=== PATIENT | male | born 1945 | race Caucasian/White ===

== ENCOUNTER → 2018-01-09 12:31 | Outpatient (CLI) | payer MEDICARE, SELFPAY ==
[2018-01-09 13:23] LABS: Alanine Aminotransferase 78 IU/L (21-72); Albumin 4.7 g/dL (3.5-5.0); Albumin Globulin Ratio 1.7 (1.0-2.8); Alkaline Phosphatase 74 U/L (38-126); Aspartate Aminotransferase 55 IU/L (17-59); BUN Creatinine Ratio 17.3 (6-22); Bilirubin Total 1.6 mg/dL (0.2-1.3); Blood Urea Nitrogen 19 mg/dL (9-20); Calcium 9.4 mg/dL (8.4-10.2); Carbon Dioxide 25 mmol/L (22-32); Chloride 106 mmol/L (98-107); Cholesterol 198 mg/dL (140-199); Estimated Glomerular Filt Rate > 60.0 mL/min (>60); Globulin 2.8 g/dL (1.7-4.1); Glucose 93 mg/dL (80-110); HDL Cholesterol 46 mg/dL (40-60); HEMOLYSIS 17 (0-50); LDL Cholesterol Calculated 133 mg/dL (<100); Potassium 4.6 mmol/L (3.4-5.1); Sodium 142 mmol/L (137-145); Total Protein 7.5 g/dL (6.3-8.2); Triglycerides 96 mg/dL (35-150)
== END ==
PROVIDERS: Family Provider Family Medicine; PCP Family Medicine; Visit Provider Internal Medicine
DX: E78.00 Pure hypercholesterolemia, unspecified (principal); R03.0 Elevated blood-pressure reading, without diagnosis of hypertension
CPT/HCPCS: 36415; 80053; 80061

== ENCOUNTER → 2018-01-21 12:20 | Outpatient (CLI) | payer MEDICARE, SELFPAY ==
[2018-01-21 13:13] LABS: Iron 82 ug/dL (49-181)
[2018-01-21 13:14] LABS: Alanine Aminotransferase 65 IU/L (21-72); Aspartate Aminotransferase 40 IU/L (17-59); Bilirubin Direct 0.3 mg/dL (0.0-0.4)
[2018-01-21 13:22] LABS: Total Iron Binding Capacity 279 ug/dL (261-462)
[2018-01-22 13:42] LABS: Hepatitis B Core Antibody Nonreactive (Nonreactive)
[2018-01-24 07:20] LABS: Hepatitis B Surf Ab Qualitativ Nonreactive (Nonreactive)
[2018-02-04 14:11] LABS: Hepatitis BE Antigen NONREACTIVE
== END ==
PROVIDERS: Visit Provider Internal Medicine
DX: R17 Unspecified jaundice (principal); R74.0 Nonspecific elevation of levels of transaminase and lactic acid dehydrogenase [LDH]
CPT/HCPCS: 36415; 82247; 82248; 83540; 83550; 84450; 84460; 86704; 86706; 87350

== ENCOUNTER → 2018-01-30 10:11 | Outpatient (CLI) | payer MEDICARE, SELFPAY ==
--- NOTE | 2018-01-30 10:13 | DI.US.S_ITS ---
PROCEDURE: US ABDOMEN COMPLETE INDICATIONS: ABNORMAL LFTS TECHNIQUE: Real-time scanning was performed of the abdominal and retroperitoneal organs, with image documentation. COMPARISON: None. FINDINGS: Liver: The liver demonstrates prominent size. The liver demonstrates generalized increased echogenicity. This decreases ultrasound sensitivity for detection of hepatic masses. Gallbladder: No findings of gallstones or sludge are seen. The gallbladder wall is not thickened, measuring 3 mm or less. No specific pericholecystic fluid is seen. The sonographic Tomlinson sign is negative. Biliary ducts: Intrahepatic bile ducts are non-dilated. Extrahepatic bile duct caliber measures 6 mm. Normal is 6-7 mm or less in diameter, or 10 mm or less post-cholecystectomy. Pancreas: Visualized portions of the pancreas are sonographically normal. Spleen: Spleen is normal in size and homogeneous in echotexture. Kidneys: Kidneys are normal in size and echotexture. Right kidney measures 13.8 cm long; left kidney measures 12.2 cm long. No hydronephrosis or nephrolithiasis. At the superior pole the right kidney, there is a 16 x 11 x 20 mm rounded, non-shadowing echogenic lesion seen. The renal cortex measures within normal limits for thickness. Aorta: Visualized aorta is normal in caliber at less than 3 cm. Iliacs: Not seen, obscured by overlying bowel gas. IVC: Not seen, obscured by overlying bowel gas. Miscellaneous: No free abdominal fluid. IMPRESSION: The liver demonstrates increased echogenicity. This finding is nonspecific, yet it is most commonly attributed to fatty infiltration. The gallbladder demonstrates a normal sonographic appearance. No biliary dilatation is seen. 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 Attention should be paid to this lesion on any future followup studies. Dictated by: Valente Galloway M.D. on 01/30/2018 at 11:43 Approved by: Valente Galloway M.D. on 01/30/2018 at 11:45
== END ==
PROVIDERS: PCP Internal Medicine; Visit Provider Internal Medicine
DX: R17 Unspecified jaundice (principal); R74.0 Nonspecific elevation of levels of transaminase and lactic acid dehydrogenase [LDH]; N28.9 Disorder of kidney and ureter, unspecified
CPT/HCPCS: 76700

== ENCOUNTER → 2018-05-03 12:23 | Outpatient (CLI) | payer MEDICARE, SELFPAY | PROVIDERS: PCP Student in an Organized Health Care Education/Training Program; Visit Provider Physician Assistant | DX: R31.9 Hematuria, unspecified (principal) | CPT/HCPCS: 87086 ==

== ENCOUNTER → 2018-10-16 13:48 | Outpatient (CLI) | payer MEDICARE, SELFPAY ==
[2018-10-16 15:30] LABS: Alanine Aminotransferase 28 IU/L (21-72); Albumin 4.6 g/dL (3.5-5.0); Albumin Globulin Ratio 1.6 (1.0-2.8); Alkaline Phosphatase 82 U/L (38-126); Aspartate Aminotransferase 26 IU/L (17-59); Bilirubin Unconjugated 0.8 mg/dL (0.0-1.1); Cholesterol 168 mg/dL (140-199); Globulin 2.9 g/dL (1.7-4.1); HDL Cholesterol 49 mg/dL (40-60); HEMOLYSIS < 15 (0-50); LDL Cholesterol Calculated 88 mg/dL (<100); Total Protein 7.5 g/dL (6.3-8.2); Triglycerides 154 mg/dL (35-150)
[2018-10-16 15:47] LABS: Vitamin D 25 Hydroxy (D3) 28.6 ng/mL (30.0-100.0)
== END ==
PROVIDERS: PCP Student in an Organized Health Care Education/Training Program; Visit Provider Student in an Organized Health Care Education/Training Program
DX: E78.00 Pure hypercholesterolemia, unspecified (principal); Z79.899 Other long term (current) drug therapy; E55.9 Vitamin D deficiency, unspecified
CPT/HCPCS: 36415; 80061; 80076; 82306

== ENCOUNTER → 2019-10-14 14:50 | Outpatient (CLI) | payer MEDICARE, SELFPAY ==
[2019-10-14 14:56] LABS: Bacteria Urine None Seen
[2019-10-14 15:30] LABS: Appearance Urine UA CLEAR; Bilirubin Urine UA NEGATIVE (NEGATIVE); Color Urine UA YELLOW; Glucose Urine UA NEGATIVE (Negative); Ketones Urine UA TRACE (NEGATIVE); Leukocyte Esterase Urine UA NEGATIVE (NEGATIVE); Nitrite Urine UA NEGATIVE (Negative); Occult Blood Urine UA NEGATIVE (Negative); Protein Urine UA TRACE (Negative); Specific Gravity Urine UA >=1.030 (1.000-1.035); Urobilinogen Urine UA 0.2 E.U./dL (0.2)
[2019-10-14 15:42] LABS: Amorphous Sediment Urine 3+; Culture Indicated Urine Cult Not Indicated; Other Crystals Urine 3+; RBC Urine 0-1/HPF (0-5/HPF); Squamous Epithelial Cell Urine 0-1 /HPF (0-5/HPF); WBC Urine 0-1/HPF (0-5/HPF)
== END ==
PROVIDERS: PCP Student in an Organized Health Care Education/Training Program; Referring Provider Student in an Organized Health Care Education/Training Program; Visit Provider Student in an Organized Health Care Education/Training Program
DX: R31.0 Gross hematuria (principal)
CPT/HCPCS: 81001

== ENCOUNTER → 2020-12-26 12:57 | Outpatient (CLI) | payer MEDICARE, SELFPAY ==
[2020-12-26 15:30] LABS: COVID19 -Nasal RAPID Negative (Negative)
== END ==
PROVIDERS: PCP Student in an Organized Health Care Education/Training Program; Visit Provider Physician Assistant
DX: Z01.812 Encounter for preprocedural laboratory examination (principal); Z20.822 Contact with and (suspected) exposure to COVID-19
CPT/HCPCS: 87635; C9803

== ENCOUNTER 2020-12-28 13:03 | Day surgery (SDC) | payer MEDICARE, SELFPAY ==
--- NOTE | 2020-12-26 17:45 | PM.PREOP ---
Pre-operative Note COVID-19 COVID-19 status: Negative Interval Note History & Physical reviewed/Exam performed by Physician: Yes Changes to H&P: No
--- NOTE | 2020-12-26 17:46 | P.OP_ITS ---
Operative Date/Time/Diagnoses Date of procedure: 12/28/20 Time of procedure: 13:15 Procedure & Clinicians Procedure: Preoperative diagnoses: 1. Right complex surgery with use of capsular dye and Maluygin ring. 2. Mature or advanced nuclear sclerotic and cortical cataract with poor visibility of the anterior capsule increasing surgical risks of complications. 3. Exudative macular degeneration with ongoing intravitreal injections increasing risk of complication. 4. Amblyopia left eye 5. 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 Postoperative diagnoses: 1. Complex surgery with use of capsular dye, and Maluygin ring. 2. Anterior vitrectomy with corneal suture. 3. 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 Cathy Jacobo MD Complications: Lens nucleus fell into the posterior chamber during the surgery. An anterior vitrectomy was performed however no lens fragments except for anterior cortex were removed. The Maluygin ring was disinserted and removed any corneal suture placed. Specimen: None Implant: [id number]+24.0 Blood loss: None Anesthesia: Retrobulbar with monitored standby. Description of procedure: Dictated by: Cathy Jacobo MD Post operative diagnoses: 1. Right cataract partially removed with use of capsular dye . 2. Placement of a Maluygin ring which is then removed. 3. Anterior vitrectomy 4. Placement of a corneal suture. 5. General anesthesia requested. 6. Arrhythmia 7. Sleep apnea Procedure: Phacoemulsification with partial lensectomy. Use of Maluygin ring and capsular dye. Complication of lens nuclear material into posterior vitreous. No intra-ocular lens inserted. Anterior vitrectomy performed and corneal suture placed. Surgeon: Cathy Jacobo MD Blood loss: None Anesthesia: Laryngeal mask airway Description of procedure: Patient has presented with decreased vision due to cataract which is affecting activities of daily living distance and near. The patient wants surgery to improve vision. Due to ongoing intravitreal injections in his right eye surgeries carefully time to be at maximum safety. 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 General anesthesia is chosen for better postoperative visual recovery and patient. The patient was taken to the operating room and given IV sedation. A laryngeal mask airway was placed. The eye is manually massaged for 30 sec, prepped using Betadine solution, and draped in the usual sterile fashion. Temporal approach was made, a 1 mm side-port incision was performed 90 degrees from the planned corneal wound. Phenylephrine 1.5% mixed with 1% xylocaine 0.2 cc was placed into the anterior chamber. An air bubble was placed and Visudyne dye was placed to improve visibility of the anterior capsule. The dye was irrigated out to reduce bubbles. Endocoat followed by Healon was then placed. A 2.6 mm clear incision with a 2.6 mm blade was placed. A 7.0 malunion ring was inspected and opened into the anterior chamber due to need for better pupillary dilation. This is secondary to use of tamsulosin for or prostate disorder. A 360 degree capsulorrhexis style capsulotomy was then performed with a cystitome needle on a Healon. Zonules appeared intact. Hydrodelineation and hydrodissection were performed. The phacoemulsification unit is introduced, and sculpting used to groove the central lens. While centrally grooving I noted a sudden change in the red reflex and deepening of the chamber. The nucleus de scending rapidly out of view leaving only anterior cortex. The capsulorrhexis was intact but I then noted a rent in the posterior capsule with vitreous presentation. I consulted with Dr. Ruiz of [facility] and Dr. Aguilar of [facility] on what was the best course to proceed. Recommendation was to remove the Maluygin ring, remove anterior viscoelastic and placed a suture. While removing the anterior viscoelastic I did notice vitreous to the wound and therefore a limited anterior vitrectomy was performed including some removal of anterior cortex. An air bubble was placed and no vitreous was noted to the wound. A corneal suture of 10 0 nylon was placed through the cornea and buried. The wound was tested for leaks, there was none and the suture left in position. Vigamox 0.1 cc was placed into the anterior chamber. A drop of antibiotic and was placed and the eye was patched and shielded. The patient was stable and returned to the recovery room in excellent condition. Extensive conversation was then held by phone with the reviewing the complication and planned for further surgery. The patient will be seen at 8:00 a.m. in [place] at [facility] for 8 hours with anticipation of further surgery as soon as possible. Special instructions were given as is patient is amblyopic in his left eye which has poor visual ability. It is recommended that he sit in a recliner to sleep this evening. Dictated by: Cathy Jacobo MD Copy to: [facility] Same procedure as scheduled: No Post-operative Plan for aftercare: Patient will be patch for the evening. He will stay in a semi reclined position to sleep. [facility] will report to [facility] in [place] in the morning for further evaluation. All instructions given to his . Chart notes will be faxed.
[2020-12-28] VITALS (10 sets, daily range): BP systolic 101–128; BP diastolic 64–80; PULSE 51–74; RESP 11–18; TEMP 35.8–36.5; O2SAT 94–99; BMI 30.4
[2020-12-28] MEDS: PROPARACAINE 0.5% OPHTH SOL 2 DROPS EYE-OP (13:18)
[2020-12-28] MEDS: CATARACT EYE COMPOUND (10 DROPS/SYRINGE) 3 DROPS EYE-OP (13:30)
[2020-12-28] MEDS: LACTATED RINGERS 1,000 ML 42 ML IV (13:34)
--- NOTE | 2020-12-28 13:59 | SUR.OPER ---
Supine on eye stretcher, head on extension cradle secured with tape. Arms tucked at sides with blanket. Pillow under knees.
[2020-12-28] MEDS: HYALURONATE SODIUM 30 MG-10 MG/ML SYRINGES 1 BOX INTRAOCULA (15:10)
[2020-12-28] MEDS: ERYTHROMYCIN OPHTH 1 GM OINT 1 APPLIC EYE-RIGHT (15:10)
[2020-12-28] MEDS: TRYPAN BLUE 0.5 ML SYRINGE INJ (15:10)
[2020-12-28] MEDS: BALANCED SALT IRRIG SOLN NO.2 500 ML, EPINEPHrine 1 MG IRR (15:10)
[2020-12-28] MEDS: PHENYLEPHRINE/LIDOCAINE VIAL (OR) 0.2 ML EYE-OP (15:56)
--- NOTE | 2020-12-28 17:29 | SUR.PHASEI ---
Sleeping in position of comfort on left side. Dr. Jacobo attempted to talk to the patient but he was too sleepy. Was able to open his left eye once in response to command and then returned to sleep.
--- NOTE | 2020-12-28 17:42 | SUR.PHASEI ---
Dr Jacobo talking to the patient. He's very sleep, answers questions.
== END 2020-12-28 18:15 | disposition home or self-care (01) ==
LOC: OR 13:06
PROVIDERS: PCP Student in an Organized Health Care Education/Training Program; Referring Provider Ophthalmology; Visit Provider Ophthalmology
PROC: (CPT 66982; principal; 2020-12-28 14:15)
DX: H25.811 Combined forms of age-related cataract, right eye (principal); H35.3210 Exudative age-related macular degeneration, right eye, stage unspecified; H53.002 Unspecified amblyopia, left eye
CPT/HCPCS: 66982; J0171; J1100; J2250; J2405; J2704; J3010

== ENCOUNTER → 2021-05-04 12:39 | Outpatient (CLI) | payer MEDICARE, SELFPAY ==
[2021-05-04 13:42] LABS: COVID19 -Nasal RAPID POSITIVE (Negative)
== END ==
PROVIDERS: PCP Student in an Organized Health Care Education/Training Program; Visit Provider Physician Assistant
DX: Z20.822 Contact with and (suspected) exposure to COVID-19 (principal)
CPT/HCPCS: 87635

== ENCOUNTER → 2021-06-28 15:04 | Outpatient (CLI) | payer MEDICARE, SELFPAY ==
--- NOTE | 2021-06-28 15:05 | DI.MRI.S_ITS ---
PROCEDURE: MR LUMBAR SPINE WO CON INDICATIONS: Worsening lower extremity weakness and lack of stamina TECHNIQUE: Noncontrast sagittal T1 spin echo and T2 fast echo, sagittal STIR, axial T1 and T2 fast spin echo through the lumbar spine. In cases with scoliosis, additional coronal T2 fast spin echo may be performed. COMPARISON: None. FINDINGS: Image quality: Excellent. Alignment and Curvature: Normal lumbar vertebral body height and alignment. Bone Marrow: [id number] discogenic marrow edema (Modic type 1 degenerative endplate change) at the opposing L5-S1 and L1-L2 endplates with associated Schmorl nodes. No suspicious focal marrow signal abnormality. Spinal Cord: Normal position and appearance of the conus. Regional Soft Tissues: Prevertebral and paraspinous soft tissues are within normal limits. T12-L1: No spinal canal stenosis. Diffuse disc bulge flattens the ventral thecal sac without mass effect upon the traversing L1 nerve roots. Foraminal components of the disc bulge and facet hypertrophy combine to produce mild bilateral neural foraminal narrowing. L1-L2: Diffuse disc bulge flattens and indents the ventral thecal sac. There is displacement of the descending L2 nerve roots and crowding overall of the traversing nerve roots. Buckling of the ligamentum flavum and facet hypertrophy further contribute to overall mild-moderate spinal canal stenosis. Foraminal components of the disc bulge and facet hypertrophy combine to produce mild bilateral neural foraminal stenosis. L2-L3: Diffuse disc bulge and a superimposed broad-based posterior disc protrusion flatten the ventral thecal sac. Mild displacement of the descending L3 nerve roots within both subarticular zones. Foraminal components of the disc bulge and facet hypertrophy combine to produce mild bilateral neural foraminal stenosis. L3-L4: Moderate spinal canal stenosis and is through a combination of diffuse disc bulge, superimposed broad-based posterior disc protrusion, buckling of the ligamentum flavum, and facet hypertrophy. Foraminal components of the disc bulge and facet hypertrophy combine to produce mild bilateral foraminal stenosis. L4-L5: Moderate spinal canal stenosis and moderate-severe subarticular zone stenosis due to a combination of diffuse disc bulge, superimposed broad-based posterior disc protrusion, buckling of the ligamentum flavum, and facet hypertrophy. Foraminal components of the disc bulge and facet hypertrophy combine to produce mild bilateral neural foraminal stenosis. L5-S1: Diffuse disc bulge with a superimposed broad-based posterior disc protrusion. Mild displacement of the descending S1 nerve roots in both subarticular zones. Foraminal components of the disc bulge and facet hypertrophy combine to produce moderate left and mild right neural foraminal stenosis. IMPRESSION: Multilevel multifactorial degenerative changes. Moderate spinal canal stenosis at L3-L4 and L4-L5 with moderate-severe subarticular zone stenosis at L4-L5. Varying degrees of neural foraminal stenosis up to moderate. Dictated by: Adrian Lepe M.D. on 06/29/2021 at 9:57 Approved by: Adrian Lepe M.D. on 06/29/2021 at 10:01
== END ==
PROVIDERS: PCP Student in an Organized Health Care Education/Training Program; Referring Provider Student in an Organized Health Care Education/Training Program; Visit Provider Student in an Organized Health Care Education/Training Program
DX: M48.061 Spinal stenosis, lumbar region without neurogenic claudication (principal); M47.816 Spondylosis without myelopathy or radiculopathy, lumbar region; M47.817 Spondylosis without myelopathy or radiculopathy, lumbosacral region; R29.898 Other symptoms and signs involving the musculoskeletal system
CPT/HCPCS: 72148

== ENCOUNTER → 2021-09-30 14:25 | Outpatient (CLI) | payer MEDICARE, SELFPAY | PROVIDERS: PCP Student in an Organized Health Care Education/Training Program; Visit Provider Nurse Practitioner Family | DX: R31.9 Hematuria, unspecified (principal) | CPT/HCPCS: 87086 ==